=== PATIENT | male | born 1965 | race Caucasian/White ===

== ENCOUNTER 2016-04-04 18:24 | Inpatient (IN) | payer OTHER ==
[~2016-04-04] VITALS: Ht 175.3 cm; Wt 113.8 kg
[~2016-04-04 18:24] MED LIST: ATOR20TA17; [UNRECOGNIZED DRUG - REMARK]
[2016-04-04] MEDS ORDERED: ENAL20TA PO (20:18)
[2016-04-04] MEDS ORDERED: morphine 10 MG INJ IV ONE (20:30)
[2016-04-04] MEDS ORDERED: CEFAZOLIN 1 GM INJ IM ONE (20:30)
--- NOTE | 2016-04-04 21:09 | RADRPT ---
PROCEDURE: XR Wrist. CLINICAL INDICATION: Chainsaw injury TECHNIQUE: AP, lateral and oblique views of the left wrist were performed. COMPARISON: No prior studies are available for comparison. FINDINGS: Well defined lucent defect compatible with penetrating wound into the radial styloid process and tea rs for an estimated depth of 6 mm but does not extend into the radiocarpal joint. The remaining oss eous structures are intact. The soft tissues demonstrate a large laceration consistent with the farheen insaw defect in the soft tissues lateral to the distal radius with possible tiny radiopaque foreign bodies along the volar aspect of the wrist. RPTAT:HJJR IMPRESSION: Large soft tissue defect consistent with laceration at the level of the penetrating bony injury into the base of the left radial styloid process, the osseous defect involving only a single cortex with out fracture fragments or intra-articular extension. Physician Lex Date Time Electronically viewed and signed by Physician Lex on 04/04/2016 21:08 /
[2016-04-04 22:19] LABS: BASOPHILS % 0.3 % (0.0-2.0); EOSINOPHILS % 0.3 % (0.0-7.0); HEMATOCRIT 42.7 % (42.0-52.0); HEMOGLOBIN 14.6 g/dl (14.0-18.0); LYMPHOCYTES # 1.9 10^3/ul (0.8-2.9); LYMPHOCYTES % 21.8 % (15.0-51.0); MEAN CORPUSCULAR HEMOGLOBIN 31.2 pg (29.0-33.0); MEAN CORPUSCULAR HGB CONC 34.3 g/dl (32.0-37.0); MEAN CORPUSCULAR VOLUME 91.1 fl (82.0-101.0); MEAN PLATELET VOLUME 9.1 fl (7.4-10.4); MONOCYTE # 0.4 10^3/ul (0.3-0.9); MONOCYTES % 4.6 % (0.0-11.0); NEUTROPHIL # 6.5 10^3/ul (1.6-7.5); PLATELET COUNT 261 10^3/UL (140-440); RED BLOOD COUNT 4.69 10^6/ul (4.70-6.10); RED CELL DISTRIBUTION WIDTH 13.6 % (11.5-14.5); UNCORRECTED WBC 8.9 10^3/ul (4.8-10.8); WHITE BLOOD COUNT 8.9 10^3/ul (4.8-10.8)
[2016-04-04 22:22] LABS: CONDITION 1
[2016-04-04] MEDS ORDERED: ACETAMINOPHEN 325 MG TAB PO PRN (22:30)
[2016-04-04] MEDS ORDERED: ONDANSETRON 4 MG INJ IV PRN (22:30)
[2016-04-04 22:31] LABS: CREATININE 0.69 mg/dl (0.61-1.24)
[2016-04-04 23:30] VITALS: TEMP 98.4
--- NOTE | 2016-04-05 00:51 | ERD ---
ER Documentation Chief Complaint Date/Time DATE: 04/05/16 TIME: 00:39 Chief Complaint left wrist laceration from a powersaw, good csm noted. bleeding controlled HPI 50-year-old male comes emergency room with a bleeding laceration to his right distal forearm after he accidentally struck her with a chainsaw he was working. He was in part of the door jamL with the son accidentally slipped. States he is still able to use his hand and has pain only at that site. He suffered no other injury ROS All systems reviewed and are negative except as per history of present illness. Medications Home Meds Reported Medications Enalapril Maleate* (Enalapril Maleate*) 20 Mg Tablet, 20 MG PO DAILY, TAB 04/04/16 Discontinued Reported Medications [Unk Antihypertensive] No Conflict Check 04/17/09 Atorvastatin (Lipitor) 20 Mg Tablet 04/17/09 Allergies Allergies: Coded Allergies: No Known Drug Allergy (Verified Allergy, Mild, 09/20/07) PMhx/Soc History of Surgery: Yes (Disc fusion 09-06) Hx Neurological Disorder: No Hx Respiratory Disorders: No Hx Cardiac Disorders: Yes (HTN, high cholesterol) Hx Miscellaneous Medical Probl: No Hx Alcohol Use: Yes (occasionally, last used 04/04/16 @1500 2 shots of tequila) Hx Substance Use: No Hx Tobacco Use: Yes Smoking Status: Former smoker Physical Exam Vitals Vital Signs Date Time Temp Pulse Resp B/P Pulse Ox O2 Delivery O2 Flow Rate FiO2 04/04/16 20:00 98.2 95 20 170/128 100 Room Air 04/04/16 18:27 98.1 97 20 142/78 98 Physical Exam Const: [] Head: Atraumatic Eyes: Normal Conjunctiva ENT: Normal External Ears, Nose and Mouth. Neck: Full range of motion..~ No meningismus. Resp: Clear to auscultation bilaterally Cardio: Regular rate and rhythm, no murmurs Abd: Soft, non tender, non distended. Normal bowel sounds Skin: No petechiae or rashes Back: No midline or flank tenderness Ext: No cyanosis, or edema Neur: Awake and alert Psych: Normal Mood and Affect Result Diagram: 04/04/16211404/04/162114 Results 24 hrs Laboratory Tests Test 04/04/16 21:15 Anion Gap 20 Basophils # 0.010^3/ul Basophils % 0.3% Blood Urea Nitrogen 15mg/dl Calcium Level 10.0mg/dl Carbon Dioxide Level 24mmol/L Chloride Level 100mmol/L Creatinine 0.69mg/dl Eosinophils # 0.010^3/ul Eosinophils % 0.3% Glucose Level 118mg/dl Hematocrit 42.7% Hemoglobin 14.6g/dl Lymphocytes # 1.910^3/ul Lymphocytes % 21.8% Mean Corpuscular Hemoglobin 31.2pg Mean Corpuscular Hemoglobin Concent 34.3g/dl Mean Corpuscular Volume 91.1fl Mean Platelet Volume 9.1fl Monocytes # 0.410^3/ul Monocytes % 4.6% Neutrophils # 6.510^3/ul Neutrophils % 73.0% Nucleated Red Blood Cells # 0.010^3/ul Nucleated Red Blood Cells % 0.0/100WBC Platelet Count 14223^3/UL Potassium Level 4.0mmol/L Red Blood Count 4.6910^6/ul Red Cell Distribution Width 13.6% Sodium Level 140mmol/L White Blood Count 8.910^3/ul Current Medications Medications (Trade) Dose Ordered Sig/Angel Luis Route PRN Reason Start Time Stop Time Status Last Admin Dose Admin Cefazolin Sodium (Ancef) 1 gm ONCE ONCE IM 04/04/16 20:30 04/04/16 20:31 DC 04/04/16 21:15 Morphine Sulfate (morphine) 6 mg ONCE ONCE IV 04/04/16 20:30 04/04/16 20:31 DC 04/04/16 21:14 Ondansetron HCl (Zofran Inj) 4 mg BRIDGE ORDER PRN IV NAUSEA AND/OR VOMITING 04/04/16 22:30 04/05/16 22:29 Acetaminophen (Tylenol Tab) 650 mg ER BRIDGE PRN PO MILD PAIN/FEVER 04/04/16 22:30 04/05/16 22:29 Procedures/MDM Open fracture involving direct contact with chainsaw to bone. No apparent signs of serious arterial injury or tendon injury affecting any hand movements. Patient maintain 5 out of 5 strength in all directions. Did have some muscle damage and lacerations were repaired in the emergency room that any good hemostasis and closure. It has given a gram of Ancef. Spoke with Dr. Gimenez who recommended the patient be admitted for further antibiotics via IV. He will be on consult for this patient as the orthopedist. Doctor on Thursday will be admitting the patient to [facility] floor. He was given mild grams of morphine emergency room as well. X-ray right wrist interpretation self. Lateral radius cortex deficit consistent with blade. No obvious fracture through the bone is seen. No dislocations. No foreign bodies visualized Laceration repair note: Laceration #1, 5 cm laceration to dorsal wrist. Acute by active arterial bleeding. Laceration was copiously irrigated and anesthetized with 3 mL of lidocaine with epinephrine. 4-0 nylon suture was used to place 6 running sutures leading to good closure and hemostasis. Patient tolerated procedure well no complications. As her a patient. Note: Laceration #2: 10 cm macerated laceration stretching from dorsoradial aspect of distal forearm proximally 4 cm from the wrist joint around to the anterior aspect of radial side of forearm. Copiously irrigated with normal saline after anesthesia with 6 mL of lidocaine with epinephrine. 2 4-0 Vicryl sutures were placed in the muscle layer along radial side inside lesion. Good closure was obtained. Total of 13 4-0 nylon running sutures suture were used to close the outer skin part of the laceration. Good hemostasis was achieved. Patient tolerated procedure well no complications. Departure Diagnosis: Primary Impression: Open fracture of distal end of radius Additional Impressions: Wrist laceration Laceration of forearm, right Acute hemorrhage Condition: Stable MARICRUZ DIAZ DO Apr 05, 2016 00:50
[2016-04-05] MEDS ORDERED: AMLODIPINE 10 MG TAB PO ONE (01:30)
[2016-04-05 03:20] VITALS: BP 177/102; PULSE 87; RESP 18
[2016-04-05 03:52] VITALS: Ht 175.3 cm; Wt 113.8 kg
[2016-04-05] MEDS ORDERED: morphine 4 MG/ML VIAL IV PRN (04:00)
[2016-04-05] MEDS ORDERED: VANCOMYCIN 2 GM in SOD CHLORIDE 0.9% 500 ML IVPB ONE (04:00)
[2016-04-05] MEDS ORDERED: hydrALAzine 20 MG INJ IV PRN (04:00)
[2016-04-05] MEDS ORDERED: HYDROCODONE/APAP (10/325) TAB PO PRN (04:00)
[2016-04-05] MEDS ORDERED: VANCOMYCIN IV PER PHARMACY XX SCH (04:00)
--- NOTE | 2016-04-05 05:54 | HP ---
Date/Time of Note Date/Time of Note DATE: 04/05/16 TIME: 05:42 Assessment/Plan VTE Prophylaxis VTE Prophylaxis Intervention: SCD's Lines/Catheters IV Catheter Type (from Nrsg): Peripheral IV Assessment/Plan Assessment/Plan 1. Large soft tissue laceration of right arm - Xray showed Large soft tissue defect consistent with laceration at the level of the penetrating bony injury into the base of the left radial styloid process , the osseous defect involving only a single cortex without fracture fragments or intra-articular extension - Will place on abx and provide pain meds - Dr. lopez, Ortho surgeon, to see pt 2. HTN: BP not at goal - pt has stopped his Enalapril 2 months ago - will initiate BP meds with adjustment as needed 3. Hx of Dyslipidemia: not on meds - this can be followed with his PCP HPI/ROS Admit Date/Time Admit Date/Time Apr 04, 2016 at 22:13 Hx of Present Illness 50-year-old male with hx of HTN and DL comes to emergency room with a bleeding laceration to his right distal forearm after he accidentally struck himself with a power saw he was working with. States he is still able to use his hand and has pain only at that site. He suffered no other injury. Dr. Lopez, from Ortho was consulted by ER. Xray showed Large soft tissue defect consistent with laceration at the level of the penetrating bony injury into the base of the left radial styloid process, the osseous defect involving only a single cortex without fracture fragments or intra-articular extension. Labs are WNL. . PMH/Family/Social Past Medical History Medical History: high cholesterol, hypertension Social History Alcohol Use: other (a bottle of tequilla weekly) Smoking Status: Former smoker Drug Use: none Exam/Review of Systems Vital Signs Vitals Vital Signs Date Time Temp Pulse Resp B/P Pulse Ox O2 Delivery O2 Flow Rate FiO2 04/05/16 03:20 98.7 87 18 177/102 98 Room Air Exam Constitutional: alert, oriented, well developed Head: atraumatic, normocephalic Eyes: EOMI, PERRL Neck: non-tender, supple Respiratory: clear to auscultation, normal air movement Cardiovascular: nl pulses, regular rate and rhythm Gastrointestinal: non-tender, soft Extremities: other (left forearm is covered. Intact sensations at fingers ) Labs Result Diagram: 04/04/16211404/04/162114 Medications Medications Current Medications Metoprolol Tartrate (Lopressor) 25 mg Q12 PO ; Start 04/05/16 at 09:00 Hydralazine HCl 10 mg 10 mg Q4H PRN IV SBP >160 Last administered on 04/05/16 04:53; Admin Dose 10 MG; Start 04/05/16 at 04:00 Cefepime HCl (Maxipime 1gm/50 ml (Pmx)) 50 ml @ 100 mls/hr Q12 IVPB ; Start 04/05/16 at 09:00 Morphine Sulfate (morphine) 4 mg Q4H PRN IV SEVERE PAIN; Start 04/05/16 at 04:00 Acetaminophen/ Hydrocodone Bitart 1 tab 1 tab Q6H PRN PO MODERATE PAIN; Start 04/05/16 at 04:00 Vancomycin HCl 2 gm/Sodium Chloride 500 ml @ 125 mls/hr ONCE ONCE IVPB Last administered on 04/05/16 04:46; Admin Dose 125 MLS/HR; Start 04/05/16 at 04:00; Stop 04/05/16 at 07:59 Vancomycin HCl/ Sodium Chloride (Vancocin/NS) 250 ml @ 83.333 mls/ hr Q12H IVPB ; Start 04/05/16 at 16:00 ARTHUR SOLOMON MD Apr 05, 2016 05:52
[2016-04-05] MEDS ORDERED: METOPROLOL 25 MG TAB PO ONE (06:00)
[2016-04-05 07:10] LABS: ALBUMIN 3.7 g/dl (3.3-4.9); POTASSIUM 3.9 mmol/L (3.5-5.1)
[2016-04-05 07:13] LABS: ALBUMIN/GLOBULIN RATIO 1.32; BILIRUBIN,INDIRECT 0.6 mg/dl (0-1.1); BILIRUBIN,TOTAL 0.6 mg/dl (0.2-1.3); CREATININE 0.62 mg/dl (0.61-1.24); TOTAL PROTEIN 6.5 g/dl (6.1-8.1)
[2016-04-05 07:14] LABS: CALCIUM 9.1 mg/dl (8.4-10.2)
[2016-04-05 07:27] VITALS: BP 160/83; RESP 16
[2016-04-05 08:20] LABS: BASOPHILS % 0.3 % (0.0-2.0); HEMATOCRIT 40.6 % (42.0-52.0); HEMOGLOBIN 13.8 g/dl (14.0-18.0); MEAN CORPUSCULAR HEMOGLOBIN 31.2 pg (29.0-33.0); MEAN CORPUSCULAR VOLUME 91.6 fl (82.0-101.0); MEAN PLATELET VOLUME 10.8 fl (7.4-10.4); MONOCYTES % 7.7 % (0.0-11.0); NEUTROPHILS % 60.5 % (39.0-77.0); PLATELET COUNT 266 10^3/UL (140-440); RED BLOOD COUNT 4.43 10^6/ul (4.70-6.10); RED CELL DISTRIBUTION WIDTH 13.3 % (11.5-14.5)
[2016-04-05 08:21] LABS: EOSINOPHILS # 0.1 10^3/ul (0.0-0.5); LYMPHOCYTES # 3.3 10^3/ul (0.8-2.9); MONOCYTE # 0.9 10^3/ul (0.3-0.9); NEUTROPHIL # 6.6 10^3/ul (1.6-7.5)
[2016-04-05] MEDS ORDERED: METOPROLOL 25 MG TAB PO SCH (09:00)
[2016-04-05] MEDS ORDERED: CEFEPIME 1GM/50 ML (PMX) 50 ML IVPB SCH (09:00)
[2016-04-05] MEDS ORDERED: HYDROCHLOROTHIAZIDE 25 MG TAB PO SCH (13:30)
[2016-04-05] MEDS ORDERED: METO-448 PO (14:01)
[2016-04-05] MEDS ORDERED: DOCU-216 PO (14:01)
[2016-04-05] MEDS ORDERED: Hydrocodone/Apap (10/325) PO (14:01)
[2016-04-05] MEDS ORDERED: LACT1CAP57 PO (14:01)
[2016-04-05] MEDS ORDERED: HYD25 PO (14:01)
--- NOTE | 2016-04-05 14:05 | PDOCDIS ---
Discharge Instructions DIAGNOSIS Discharge Diagnosis: Wrist Laceration , uncontrolled Hypertension CONDITION Patient Condition: Stable HOME CARE INSTRUCTIONS: Diet Instructions: Low Fat /Cholesterol ACTIVITY: Activity Restrictions: Slowly Increase Activity Rest between Activity FOLLOW UP/APPOINTMENTS Appointments Followup with your primary doctor within the next 1 week. Review your medication list with your nurse before leaving and if you need new prescriptions please let your nurse know. I have made changes to your home medications and given you new prescriptions, please let your primary doctor know as well. Stay compliant with your medications and report any side effects to your PCP or pharmacist. Return to the ER if you have any concerns and cannot reach your doctors or call your insurance company, they usually have a nurse that can help you. DEVIN ROA Apr 05, 2016 14:05
[2016-04-05] MEDS ORDERED: LEVO500T72 PO (14:29)
[2016-04-05] MEDS ORDERED: BACTDS PO (14:29)
[2016-04-05] MEDS ORDERED: VANCOMYCIN 1.5 GM in SOD CHLORIDE 0.9% 250 ML IVPB SCH (16:00)
[2016-04-05] MEDS ORDERED: DOCUSATE SODIUM 100 MG CAP PO SCH (21:00)
--- NOTE | 2016-04-06 07:05 | DS ---
DATE OF ADMISSION: 04/04/2016 DATE OF DISCHARGE: 04/05/2016 ADMISSION DIAGNOSES: 1. Large soft tissue laceration of the right arm. 2. Uncontrolled hypertension. 3. History of dyslipidemia. DISCHARGE DIAGNOSES: 1. Laceration has been repaired in the ER. The patient has had 2 days doses of IV antibiotics, van comycin and cefepime. 2. Blood pressure control is much improved. 3. The patient has a reactive leukocytosis. 4. He was also found to have a normocytic normochromic anemia. CONSULTS ON THE CASE: Dr. Kristie Gimenez who did a telephone consult to the emergency room physician and also spoken with him today. INTERVENTIONS: Include laceration repair by ER doctor and IV antibiotics with vancomycin and Ancef given on 04/04/2016 and also on 04/05/2016. The patient was also started on aggressive blood pressu re control with improved values. SHORT HOSPITALIZATION COURSE: Full details are available in chart for review. In summary, this shabbir y pleasant 50-year-old male underwent an accidental chainsaw laceration to his wrist while at work c utting wood and was seen in the ER. Laceration was repaired by the ER doctor, and he did get consul tation with ortho. Over the telephone, Dr. Gimenez advised admission and IV antibiotics for a short cou rse and possible overnight observation. The patient was also noted to have severely elevated blood pressures. The patient was admitted and started on blood pressure control as well as IV antibiotic therapy. He did very well. As of today, the patient was requesting to be discharged. I spoke with Dr. Gimenez again on the phone who okayed the patient for discharge on oral antibiotics. I also spoke by telephone with Dr. Dada Ham, and he recommended discharge on Bactrim and Levaquin. The miki choudhury's blood pressure had improved by then. The control was still suboptimal, and as such, he was o bserved until his blood pressure came down to 140 systolic and at that time was cleared for discharg e by myself. He is to be discharged in stable condition. DISCHARGE DIET: Low cholesterol, low fat. Activity as tolerated with regular exercise to promote w eight loss and better blood pressure control. DISCHARGE MEDICATIONS: 1. Colace 100 mg p.o. b.i.d. 2. Hydrochlorothiazide 25 mg p.o. daily. 3. Lactobacillus acidophilus 1 capsule daily. 4. Levaquin 500 p.o. daily. 5. Metoprolol 25 p.o. q. 12. 6. Bactrim-DS 1 tab p.o. b.i.d. for 8 more days to complete a 10-day course. 7. [place] 10/325, one tab every 6 hours as needed for pain. FOLLOWUP: The patient is recommended to follow up with his primary care physician, Dr. Agudelo, within the next week to ensure the wound continues to look clean and no evidence of infection. He h as verbalized understanding and agreement with the plan. Overall time spent on evaluation today including speaking with physicians and patient counseling as well as ensuring the patient's blood pressure improves has been more than 45 minutes. For clarifica tion and further information, please review the patient's chart and my orders. Dictated By: DEVIN ROA MD, BA/CRISSY Conf#: [id number] DID#: [id number]
== END 2016-04-05 16:15 | disposition home or self-care (01) | DRG 502 ==
LOC: E/R 18:24 → MS2 22:13
PROVIDERS: ADMIT Internal Medicine; ATTEND Internal Medicine
PROC: 0KQ90ZZ Repair Right Lower Arm and Wrist Muscle, Open Approach (ICD-10-PCS; principal; 2016-04-05)
DX: S52.511B Displaced fracture of right radial styloid process, initial encounter for open fracture type I or II (principal); I10 Essential (primary) hypertension; W31.2XXA Contact with powered woodworking and forming machines, initial encounter; E78.00 Pure hypercholesterolemia, unspecified; Z87.891 Personal history of nicotine dependence
CPT/HCPCS: 80048; 80053; 85025; 96372; 96374; J0360; J0690; J0692; J2270; J3370; J7040; J7050

== ENCOUNTER 2017-06-12 15:18 | Emergency (ER) | END 2017-06-12 18:04 | disposition home or self-care (01) ==

== ENCOUNTER 2018-01-18 09:54 | Emergency (ER) | END 2018-01-18 13:42 | disposition home or self-care (01) ==